=== PATIENT | female | born 2005 | race Caucasian/White ===

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

== ENCOUNTER 2025-04-21 12:23 | Emergency (ER) | payer BC ==
--- NOTE | 2025-04-21 13:46 | RAD REPORT ---
EXAMINATION: XR RIGHT ANKLE CLINICAL INDICATION: . PAIN TECHNIQUE:Two view radiograph of the right ankle were obtained. COMPARISON: No prior exam. FINDINGS: There are 2 screws seen in the medial malleolus. Mild adjacent soft tissue swelling. No acu te fracture or dislocation.
--- NOTE | 2025-04-21 13:47 | RAD REPORT ---
EXAMINATION: XR RIGHT TIBIA AND FIBULA CLINICAL INDICATION: FALL TECHNIQUE:Two view radiograph of the right tibia and fibula were obtained. COMPARISON: No prior exam. FINDINGS: No acute fracture or dislocation seen. 2 screws are present in the medial malleolus.
--- NOTE | 2025-04-21 13:47 | RAD REPORT ---
EXAMINATION: XR RIGHT FOOT CLINICAL INDICATION: Female, 20 years old. PAIN TECHNIQUE: Multiple views of the right foot were obtained. COMPARISON: No prior exam. FINDINGS: No acute fracture or dislocation seen. 2 screws are present in the medial malleolus.
--- NOTE | 2025-04-21 13:57 | EDPHYS ---
Physician Documentation [facility] Name: Madison Coronado Age: 20 yrs Sex: Female : 2005 Arrival Date: 04/21/2025 Time: 12:23 Bed DX3 Private MD: ED Physician Chang Benitez HPI: 04/21 12:39 This 20 yrs old Female presents to ER via Wheelchair with complaints of Ankle Injury - rn RT, Fall Injury. 12:39 The patient presents with decreased range of motion, an injury, pain. The complaints rn affect the right ankle. Patient reports slip and fell down 3 steps, outdoors, scraped her right knee and bilateral lower extremities but complains of pain only to the right ankle and right foot. Was wearing sandals. Tripped. No head injury or neck pain or back pain. No rib injury.. 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 - Infectious Disease History:: Denies. - Social history:: Smoking status: Patient denies any tobacco usage or history of. - Family history:: not pertinent. - Hospitalizations: : No recent hospitalization is reported. ROS: 12:39 Constitutional: Negative for fever, chills, and weight loss, MS/Extremity: Positive for rn right ankle and foot pain and injury Skin: Positive for abrasion to bilateral lower extremities Exam: 12:39 Constitutional: This is a well developed, well nourished patient who is awake, alert, rn and in no acute distress. Head/Face: Normocephalic, atraumatic. MS/ Extremity: Multiple superficial abrasions to bilateral lower extremities. No lacerations. Mild tenderness lateral malleolus of the right ankle and midfoot. No gross deformity or swelling noted. Vital Signs: 12:36 BP 96 / 68; Pulse 86; Resp 16; Temp 97.5; Pulse Ox 100% on R/A; Weight 77.11 kg; Height hb 5 ft. 3 in. ; Pain 7/10; 12:36 Body Mass Index 30.11 (77.11 kg, 160.02 cm) hb 12:36 Pain Scale: Adult hb MDM: 12:27 Medical Screening Exam initiated rn 13:55 Differential diagnosis: fracture, sprain. Data reviewed: vital signs, nurses notes, rn radiologic studies, plain films, and as a result, I will discharge patient. Independent interpretation of the following test(s) in the Emergency Department X-Ray: My interpretation is X-ray right ankle images negative for acute fracture or dislocation per my interpretation. Independent interpretation of the following test(s) in the Emergency Department X-Ray: My interpretation is X-ray right foot images negative for acute fracture or dislocation per my interpretation. Counseling: I had a detailed discussion with the patient and/or guardian regarding the historical points, exam findings, and any diagnostic results supporting the discharge/admit diagnosis, radiology results, the need for outpatient follow up, to return to the emergency department if symptoms worsen or persist or if there are any questions or concerns that arise at home. Special discussion: I discussed with the patient/guardian in detail that at this point there is no indication for admission to the hospital. It is understood, however, that if the symptoms persist or worsen the patient needs to return immediately for re-evaluation. Based on the history and exam findings, there is no indication for further emergent testing or inpatient evaluation. I discussed with the patient/guardian the need to see the orthopedic surgeon for further evaluation of the symptoms. I discussed with the patient/guardian the need to see the primary care provider for further evaluation of the symptoms. 04/21 12:27 Order name: XRAY Ankle RIGHT 3 view; Complete Time: 13:52 rn 04/21 12:27 Order name: XRAY Foot RIGHT 3 View; Complete Time: 13:52 rn 04/21 13:15 Order name: Tib Fib Right; Complete Time: 13:52 EDMS 04/21 13:57 Order name: Jerzy wrap-joint: right ankle and foot; Complete Time: 14:35 rn 04/21 14:41 Order name: Crutches; Complete Time: 14:41 jl7 Administered Medications: No medications were administered Disposition Summary: 04/21/25 13:56 Discharge Ordered Notes: Location: Home rn Problem: new rn Symptoms: have improved rn Condition: Stable rn Diagnosis - Contusion of right ankle rn - Abrasion of lower leg rn Followup: rn - With: Private Physician - When: As needed - Reason: Recheck today's complaints, Re-evaluation by your physician Discharge Instructions: - Discharge Summary Sheet rn - Ankle Sprain rn - Contusion rn - Ankle Pain rn Forms: - Medication Reconciliation Form rn - 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 EDMS EDMS
--- NOTE | 2025-04-21 13:57 | ER ---
Nurse's Notes [facility] Name: Madison Coronado Age: 20 yrs Sex: Female : 2005 Arrival Date: 04/21/2025 Time: 12:23 Bed DX3 Private MD: Diagnosis: Contusion of right ankle;Abrasion of lower leg Presentation: 04/21 12:36 Chief complaint: Tripped and fell down 3 stairs, c/o right ankle pain 02/08. Abrasions hb noted to right knee and ankle. Coronavirus screen: At this time, the client does not indicate any symptoms associated with coronavirus-19. Ebola Screen: No symptoms or risks identified at this time. Initial Sepsis Screen: Does the patient meet any 2 criteria? No. Patient's initial sepsis screen is negative. Does the patient have a suspected source of infection? No. Patient's initial sepsis screen is negative. Risk Assessment: Do you want to hurt yourself or someone else? Patient reports no desire to harm self or others. Onset of symptoms was April 21, 2025. 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 - Infectious Disease History:: Denies. - Social history:: Smoking status: Patient denies any tobacco usage or history of. - Family history:: not pertinent. - Hospitalizations: : No recent hospitalization is reported. Screenin:37 [facility] ED Fall Risk Assessment (Adult) History of falling in the last 3 months, jl7 including since admission Yes- single mechanical fall (1 pt) Confusion or Disorientation No (0 pts) Intoxicated or Sedated No (0 pts) Impaired Gait No (0 pts) Mobility Assist Device Used Yes (1 pt) Altered Elimination No (0 pt) Score/Fall Risk Level 0 - 2 = Low Risk Oriented to surroundings, Maintained a safe environment. Abuse screen: Denies threats or abuse. Denies injuries from another. Nutritional screening: No deficits noted. Tuberculosis screening: No symptoms or risk factors identified. Assessment: 14:37 Reassessment: On Discharge pt requested splint to RLE, ERD informed pt the risks jl7 outweigh benefits with a non fractured extremity, pt then requested and Aircast and crutches, provided as requested and ordered. Pt departed ED prior to vitals being rechecked. Vital Signs: 12:36 BP 96 / 68; Pulse 86; Resp 16; Temp 97.5; Pulse Ox 100% on R/A; Weight 77.11 kg; Height hb 5 ft. 3 in. ; Pain 7; 12:36 Body Mass Index 30.11 (77.11 kg, 160.02 cm) hb 12:36 Pain Scale: Adult hb ED Course: 12:26 Patient arrived in ED. cj3 12:26 Chang Benitez MD is Attending Physician. rn 12:37 Triage completed. hb 12:37 Arm band placed on. hb 13:38 XRAY Ankle RIGHT 3 view In Process Unspecified. EDMS 13:38 XRAY Foot RIGHT 3 View In Process Unspecified. EDMS 13:38 Tib Fib Right In Process Unspecified. EDMS 14:35 No provider procedures requiring assistance completed. Patient did not have IV access jl7 during this emergency room visit. 14:35 Crutch training done. Jerzy wrap to right ankle Air stirrup applied to right ankle. jl7 14:37 Patient has correct armband on for positive identification. Provided Education on: jl7 discharge. Administered Medications: No medications were administered Medication: 14:36 VIS not applicable for this client. jl7 Outcome: 13:56 Discharge ordered by . rn 14:40 Discharged to home via wheelchair, with significant other, jl7 14:40 Condition: stable 14:40 Discharge instructions given to patient, significant other, Instructed on discharge instructions, follow up and referral plans. Demonstrated understanding of instructions, follow-up care, 14:41 Patient left the ED. jl7 Signatures: Dispatcher [employer] EDChang Lauren MD MD rn Baxter, Heather, RN RN hb Leal, Jahala, RN RN jl7 Tika Barnes [email or web address]
[2025-04-21 14:53] VITALS: BP 96/68; TEMP 97.5; O2SAT 100
== END 2025-04-21 14:41 | disposition home or self-care (01) ==
LOC: ER 12:23
DX: S90.01XA Contusion of right ankle, initial encounter (principal); S80.811A Abrasion, right lower leg, initial encounter; W10.9XXA Fall (on) (from) unspecified stairs and steps, initial encounter
CPT/HCPCS: 99283